=== PATIENT | female | born 1990 | race African-American/Black ===

== ENCOUNTER 2017-01-05 18:25 | Emergency (ER) | payer MEDICAID ==
[2017-01-05 19:06] LABS: #Basophils 0.1 thou/uL (0.0-0.2); #Eosinphils 0.2 thou/uL (0.0-0.7); #Lymphocytes 2.3 thou/uL (1.20-3.40); #Monocytes 0.6 thou/uL (0.11-0.59); #Neutrophils 5.5 thou/uL (1.40-6.50); %Basophils 0.6 % (0.0-1.0); %Eosinophils 2.4 % (0.0-10.0); %Lymphocytes 26.6 % (21.0-51.0); %Monocytes 6.8 % (0.0-10.0); %Neutrophils 63.6 % (42.0-75.0); Hemoglobin 10.6 g/dL (12.0-16.0); Mean Corpuscular Hemoglobin 26.2 pg (27.0-31.0); Mean Corpuscular Volume 81.9 fl (81.0-99.0); Mean Platelet Volume 7.8 fL (7.4-10.4); Platelet Count 348 thou/uL (130-400); RBC Distribution Width 13.4 % (11.5-14.5); Red Blood Cell (RBC) Count 4.05 mill/uL (4.20-5.40); White Blood Cell (WBC) Count 8.7 thou/uL (4.8-10.8)
[2017-01-05 19:24] LABS: ALT (SGPT) 16 U/L (0-55); AST (SGOT) 13 U/L (5-34); Albumin 3.9 g/dL (3.5-5.0); Alkaline Phosphatase 71 U/L (40-150); Anion Gap 14 mmol/L (10-20); BUN (Urea Nitrogen) 10 mg/dL (7.0-18.7); Bilirubin, Total Less than 0.3 mg/dL (0.2-1.2); Calc. Creatinine Clearance 0 mL/min (70-130); Calcium 9.1 mg/dL (7.8-10.44); Carbon Dioxide 21 mmol/L (22-29); Chloride 110 mmol/L (98-107); Estimated GFR-MDRD Greater than 90; Globulin 2.8 g/dL (2.4-3.5); Glucose 108 mg/dL (70-105); Potassium 3.7 mmol/L (3.5-5.1); Protein, Total 6.7 g/dL (6.0-8.3); Sodium 141 mmol/L (136-145)
[2017-01-05 19:33] LABS: Bilirubin Negative (Negative); Blood, Urine Small (Negative); Clarity Clear (Clear); Glucose, Urine (Dipstick) Negative (Negative); Leukocyte Negative (Negative); Nitrite Negative (Negative); Protein, Urine (Dipstick) Negative (Neg-Trace)
[2017-01-05 19:35] LABS: Bacteria/HPF Rare-Few HPF (None Seen); Other Microscopic Description C&S SET UP; WBC/HPF 0-3 HPF (0-3)
--- NOTE | 2017-01-05 19:38 | RAD ---
TWO VIEWS CHEST: History: 26-year-old with history of dyspnea. FINDINGS: PA and lateral views of the chest demonstrate the lungs to be well aerated. No evidence of acute int rathoracic abnormality is seen. No evidence of effusions, pneumonia, or pneumothorax seen. IMPRESSION: Unremarkable two views chest. POS: [facility]
== END 2017-01-05 21:21 | disposition home or self-care (01) ==
LOC: MADERS 18:25
DX: R53.83 Other fatigue (principal); D64.9 Anemia, unspecified
CPT/HCPCS: 36415; 71020; 80053; 81003; 81015; 85025; 87077; 87086

== ENCOUNTER 2017-05-31 22:16 | Emergency (ER) | payer MEDICAID ==
[2017-05-31] MEDS ORDERED: AMOXicillin 250 MG CAP ONE (23:17)
[2017-05-31] MEDS ORDERED: Ondansetron ODT 4 MG TAB ONE ×2 (23:17→23:20)
== END 2017-05-31 23:33 | disposition home or self-care (01) ==
LOC: MADERS 22:16
DX: J02.9 Acute pharyngitis, unspecified (principal)
CPT/HCPCS: 99283; Q0162

== ENCOUNTER 2017-07-13 10:13 | Emergency (ER) | payer MEDICAID ==
[2017-07-13] MEDS ORDERED: Meclizine HCl 25 MG TAB ONE (11:02)
[2017-07-13] MEDS ORDERED: Ondansetron ODT 4 MG TAB ONE (11:02)
[2017-07-13 12:04] LABS: Bacteria/HPF Rare-Few HPF (None Seen); Bilirubin Negative (Negative); Blood, Urine Trace (Negative); Clarity Clear (Clear); Glucose, Urine (Dipstick) Negative (Negative); Leukocyte Negative (Negative); Nitrite Negative (Negative); Other Microscopic Description C&S SET UP; Protein, Urine (Dipstick) Negative (Neg-Trace); Specific Gravity, Urine 1.025 (1.005-1.030); Squamous Epithelial 0-3 HPF (0-3); Urobilinogen 0.2 mg/dL (0.2-1.0); WBC/HPF 0-3 HPF (0-3); pH, Urine 6.5 (5.0-9.0)
== END 2017-07-13 12:20 | disposition home or self-care (01) ==
LOC: MADERS 10:13
DX: B34.9 Viral infection, unspecified (principal); D64.9 Anemia, unspecified
CPT/HCPCS: 81001; 87077; 87086; 99284; Q0162

== ENCOUNTER 2017-11-20 21:06 | Emergency (ER) | payer MEDICAID, SELFPAY ==
[2017-11-20] MEDS ORDERED: Ondansetron ODT 4 MG TAB ONE (22:42)
[2017-11-20] MEDS ORDERED: Ketorolac Tromethamine 60 MG/2 ML VIAL ONE (22:42)
[2017-11-20] MEDS ORDERED: Dexamethasone 4 mg/ml Vial ONE (23:00)
[2017-11-20] MEDS ORDERED: Dexamethasone 4 MG TAB ONE (23:01)
== END 2017-11-20 23:16 | disposition home or self-care (01) ==
LOC: MADERS 21:06
DX: G43.909 Migraine, unspecified, not intractable, without status migrainosus (principal)
CPT/HCPCS: 96372; J1100; J1885; J8540; Q0162

== ENCOUNTER 2017-12-05 17:06 | Emergency (ER) | payer SELFPAY | END 2017-12-05 18:05 | disposition home or self-care (01) | LOC: MADERS 17:06 | DX: J06.9 Acute upper respiratory infection, unspecified (principal); D64.9 Anemia, unspecified | CPT/HCPCS: 99283 ==

== ENCOUNTER 2018-03-01 21:35 | Emergency (ER) | payer SELFPAY ==
[~2018-03-01 21:35] MED LIST: Sodium Chloride 0.9% 1,000 ML BAG ONE
[2018-03-01] MEDS ORDERED: Metoclopramide HCl 10 MG/2 ML VIAL ONE (23:07)
[2018-03-01] MEDS ORDERED: Ketorolac Tromethamine 30 MG/ML VIAL ONE (23:07)
[2018-03-01] MEDS ORDERED: Promethazine HCl 25 MG/ML VIAL ONE (23:07)
[2018-03-01] MEDS ORDERED: diphenhydrAMINE 50 MG/ML VIAL ONE (23:07)
== END 2018-03-02 00:26 | disposition home or self-care (01) ==
LOC: MADERS 21:35
DX: G43.909 Migraine, unspecified, not intractable, without status migrainosus (principal)
CPT/HCPCS: 96361; 96374; 96375; J1200; J1885; J2550; J2765; J7050

== ENCOUNTER 2018-03-19 20:37 | Emergency (ER) | payer SELFPAY | END 2018-03-19 21:44 | disposition home or self-care (01) | LOC: MADERS 20:37 | DX: J02.9 Acute pharyngitis, unspecified (principal); D64.9 Anemia, unspecified; G43.909 Migraine, unspecified, not intractable, without status migrainosus | CPT/HCPCS: 87081; 87430; 99283 ==

== ENCOUNTER 2018-07-24 19:54 | Emergency (ER) | payer SELFPAY ==
[2018-07-24 20:39] LABS: Bilirubin Negative (Negative); Blood, Urine Small (Negative); Clarity Clear (Clear); Glucose, Urine (Dipstick) Negative (Negative); Leukocyte Negative (Negative); Nitrite Negative (Negative); Protein, Urine (Dipstick) Negative (Neg-Trace); pH, Urine 8.5 (5.0-9.0)
[2018-07-24 20:45] LABS: Bacteria/HPF Rare-Few HPF (None Seen); Pregnancy Test - Urine (BHCG) POSITIVE (Negative); Pregu Control Background? CLEAR/WHITE (CLR/WHITE); Pregu Control Bar Appear? YES (CONTROL BAR); WBC/HPF 0-3 HPF (0-3)
[2018-07-24 21:25] LABS: #Basophils 0.1 thou/uL (0.0-0.2); #Eosinphils 0.2 thou/uL (0.0-0.7); #Lymphocytes 2.8 thou/uL (1.20-3.40); #Monocytes 0.8 thou/uL (0.11-0.59); #Neutrophils 5.8 thou/uL (1.40-6.50); %Basophils 0.9 % (0.0-1.0); %Eosinophils 2.2 % (0.0-10.0); %Lymphocytes 28.7 % (21.0-51.0); %Monocytes 8.5 % (0.0-10.0); %Neutrophils 59.7 % (42.0-75.0); Hemoglobin 10.6 g/dL (12.0-16.0); Mean Corpuscular HGB CONC 32.1 g/dL (32.0-36.0); Mean Corpuscular Hemoglobin 25.7 pg (27.0-31.0); Mean Platelet Volume 8.3 fL (7.4-10.4); Platelet Count 426 thou/uL (130-400); Red Blood Cell (RBC) Count 4.12 mill/uL (4.20-5.40); White Blood Cell (WBC) Count 9.6 thou/uL (4.8-10.8)
[2018-07-24 21:38] LABS: ALT (SGPT) 10 U/L (8-55); AST (SGOT) 12 U/L (5-34); Albumin 4.1 g/dL (3.5-5.0); Alkaline Phosphatase 71 U/L (40-150); Anion Gap 12 mmol/L (10-20); BUN (Urea Nitrogen) 9 mg/dL (7.0-18.7); Bilirubin, Total 0.2 mg/dL (0.2-1.2); Calc. Creatinine Clearance 0 mL/min (70-130); Calcium 9.4 mg/dL (7.8-10.44); Carbon Dioxide 22 mmol/L (22-29); Chloride 109 mmol/L (98-107); Estimated GFR-MDRD Greater than 90; Glucose 94 mg/dL (70-105); Potassium 3.8 mmol/L (3.5-5.1); Protein, Total 7.1 g/dL (6.0-8.3); Sodium 139 mmol/L (136-145)
== END 2018-07-24 22:14 | disposition home or self-care (01) ==
LOC: MADERS 19:54
DX: O99.89 Other specified diseases and conditions complicating pregnancy, childbirth and the puerperium (principal); M54.42 Lumbago with sciatica, left side; O99.011 Anemia complicating pregnancy, first trimester
CPT/HCPCS: 36415; 80053; 81003; 81015; 81025; 84702; 85025; 99283

== ENCOUNTER 2018-09-18 12:38 | Emergency (ER) | payer MEDICAID, OTHER ==
[2018-09-18 13:24] LABS: Bilirubin Negative (Negative); Blood, Urine Small (Negative); Glucose, Urine (Dipstick) Negative (Negative); Leukocyte Negative (Negative); Nitrite Negative (Negative); Protein, Urine (Dipstick) Negative (Neg-Trace); Urobilinogen 0.2 mg/dL (0.2-1.0)
[2018-09-18 13:40] LABS: Clarity Hazy (Clear)
[2018-09-18 13:41] LABS: Bacteria/HPF Rare-Few HPF (None Seen); Specific Gravity, Urine 1.032 (1.002-1.036); WBC/HPF 0-3 HPF (0-3)
[2018-09-18 13:42] LABS: #Basophils 0.1 thou/uL (0.0-0.2); #Eosinphils 0.1 thou/uL (0.0-0.7); #Lymphocytes 1.7 thou/uL (1.20-3.40); #Monocytes 0.7 thou/uL (0.11-0.59); #Neutrophils 6.5 thou/uL (1.40-6.50); %Basophils 0.8 % (0.0-1.0); %Eosinophils 1.4 % (0.0-10.0); %Lymphocytes 18.1 % (21.0-51.0); %Monocytes 8.1 % (0.0-10.0); %Neutrophils 71.6 % (42.0-75.0); Hemoglobin 11.1 g/dL (12.0-16.0); Mean Corpuscular HGB CONC 32.7 g/dL (32.0-36.0); Mean Corpuscular Hemoglobin 26.5 pg (27.0-31.0); Mean Platelet Volume 7.3 fL (7.4-10.4); Platelet Count 372 thou/uL (130-400); RBC Distribution Width 13.1 % (11.5-14.5); Red Blood Cell (RBC) Count 4.18 mill/uL (4.20-5.40); White Blood Cell (WBC) Count 9.1 thou/uL (4.8-10.8)
[2018-09-18 13:57] LABS: ALT (SGPT) 22 U/L (8-55); AST (SGOT) 19 U/L (5-34); Albumin 3.9 g/dL (3.5-5.0); Alkaline Phosphatase 64 U/L (40-150); Anion Gap 15 mmol/L (10-20); BUN (Urea Nitrogen) 9 mg/dL (7.0-18.7); Bilirubin, Total 0.4 mg/dL (0.2-1.2); Calc. Creatinine Clearance 0 mL/min (70-130); Calcium 9.5 mg/dL (7.8-10.44); Carbon Dioxide 21 mmol/L (22-29); Chloride 105 mmol/L (98-107); Estimated GFR-MDRD Greater than 90; Globulin 3.2 g/dL (2.4-3.5); Glucose 85 mg/dL (70-105); Potassium 3.8 mmol/L (3.5-5.1); Protein, Total 7.1 g/dL (6.0-8.3); Sodium 137 mmol/L (136-145)
[2018-09-21 22:49] LABS: Chlamydia by PCR Not Detected (NotDetected); GC by PCR Not Detected (NotDetected)
== END 2018-09-18 15:05 | disposition short-term general hospital (02) ==
LOC: MADERS 12:38
DX: O99.89 Other specified diseases and conditions complicating pregnancy, childbirth and the puerperium (principal); R10.2 Pelvic and perineal pain; O99.011 Anemia complicating pregnancy, first trimester; Z3A.10 10 weeks gestation of pregnancy
CPT/HCPCS: 36415; 80053; 81001; 84702; 85025; 87491; 87591; 99284

== ENCOUNTER 2019-01-11 09:53 | Outpatient (CLI) | payer OTHER ==
[2019-01-11 11:26] LABS: #Basophils 0.1 thou/uL (0.0-0.2); #Eosinphils 0.1 thou/uL (0.0-0.7); #Lymphocytes 1.5 thou/uL (1.20-3.40); #Monocytes 0.6 thou/uL (0.11-0.59); %Basophils 0.9 % (0.0-1.0); %Eosinophils 1.3 % (0.0-10.0); %Lymphocytes 17.6 % (21.0-51.0); %Neutrophils 73.1 % (42.0-75.0); Hemoglobin 10.6 g/dL (12.0-16.0); Mean Corpuscular HGB CONC 32.2 g/dL (32.0-36.0); Mean Corpuscular Hemoglobin 26.3 pg (27.0-31.0); Mean Corpuscular Volume 81.5 fL (78.0-98.0); Mean Platelet Volume 7.7 fL (7.4-10.4); Platelet Count 299 thou/uL (130-400); RBC Distribution Width 14.4 % (11.5-14.5); Red Blood Cell (RBC) Count 4.02 mill/uL (4.20-5.40); White Blood Cell (WBC) Count 8.2 thou/uL (4.8-10.8)
[2019-01-11 17:26] LABS: Syphilis Antibody Nonreactive (Nonreactive); Syphilis Antibody Index 0.07 S/CO (<1.00 Non-Reactive)
[2019-01-11 17:29] LABS: HIV (1/2) Antibody/Antigen Non-Reactive (NonReactive); HIV 1/2 INDEX 0.06 S/CO (<1.00)
== END 2019-01-11 09:54 | disposition home or self-care (01) ==
LOC: MADLABBHPM 09:53
PROVIDERS: ATTEND Family Medicine
DX: O09.893 Supervision of other high risk pregnancies, third trimester (principal)
CPT/HCPCS: 36415; 82950; 85025; 86780; 87389

== ENCOUNTER 2019-01-25 07:45 | Outpatient (CLI) | payer OTHER | END 2019-01-25 07:46 | disposition home or self-care (01) | LOC: MADLABBHPM 07:45 | PROVIDERS: ATTEND Family Medicine | DX: O09.893 Supervision of other high risk pregnancies, third trimester (principal) | CPT/HCPCS: 36415; 82951; 82952 ==

== ENCOUNTER 2019-07-04 20:59 | Emergency (ER) | payer OTHER, SELFPAY ==
--- NOTE | 2019-07-04 22:34 | CT ---
CT BRAIN NONCONTRAST: DATE: 07/04/2019 HISTORY: 28-year-old female with headache FINDINGS: There is no evidence of acute intra-axial or extra-axial hemorrhage. There is no midline shift or any other mass effect. There is no extra-axial fluid collection. There is no evidence of obstructive hydrocephalus. Calvarium is intact. IMPRESSION: No acute intracranial findings.
== END 2019-07-04 21:56 | disposition home or self-care (01) ==
LOC: MADERS 20:59
DX: R51 Headache (principal); D64.9 Anemia, unspecified
CPT/HCPCS: 70450

== ENCOUNTER 2019-11-02 19:36 | Emergency (ER) | payer SELFPAY | END 2019-11-02 20:44 | disposition home or self-care (01) | LOC: MADERS 19:36 | DX: J06.9 Acute upper respiratory infection, unspecified (principal); D64.9 Anemia, unspecified; G43.909 Migraine, unspecified, not intractable, without status migrainosus | CPT/HCPCS: 99283 ==

== ENCOUNTER 2020-06-04 08:20 | Outpatient (CLI) | payer OTHER ==
[2020-06-04 10:03] LABS: #Basophils 0.1 thou/uL (0.0-0.2); #Eosinphils 0.1 thou/uL (0.0-0.7); #Lymphocytes 1.9 thou/uL (1.20-3.40); #Monocytes 0.5 thou/uL (0.11-0.59); %Basophils 0.7 % (0.0-1.0); %Eosinophils 1.3 % (0.0-10.0); %Lymphocytes 24.9 % (21.0-51.0); %Monocytes 6.1 % (0.0-10.0); Hemoglobin 10.1 g/dL (12.0-16.0); Mean Corpuscular HGB CONC 31.2 g/dL (32.0-36.0); Mean Corpuscular Hemoglobin 25.7 pg (27.0-31.0); Mean Corpuscular Volume 82.4 fL (78.0-98.0); Mean Platelet Volume 8.3 fL (7.4-10.4); Platelet Count 324 thou/uL (130-400); RBC Distribution Width 13.8 % (11.5-14.5); Red Blood Cell (RBC) Count 3.92 mill/uL (4.20-5.40); White Blood Cell (WBC) Count 7.4 thou/uL (4.8-10.8)
[2020-06-04 17:22] LABS: Syphilis Antibody Nonreactive (Nonreactive); Syphilis Antibody Index 0.09 S/CO (<1.00 Non-Reactive)
[2020-06-04 17:26] LABS: HIV (1/2) Antibody/Antigen Non-Reactive (NonReactive); HIV 1/2 INDEX 0.15 S/CO (<1.00)
== END 2020-06-04 08:21 | disposition home or self-care (01) ==
LOC: MADLABBHPM 08:20
PROVIDERS: ATTEND Family Medicine
DX: O09.893 Supervision of other high risk pregnancies, third trimester (principal)
CPT/HCPCS: 36415; 82950; 85025; 86780; 87389

== ENCOUNTER 2022-02-14 14:49 | Emergency (ER) | payer OTHER | END 2022-02-14 17:16 | disposition home or self-care (01) | LOC: MADERS 14:49 | DX: T19.2XXA Foreign body in vulva and vagina, initial encounter (principal); D64.9 Anemia, unspecified | CPT/HCPCS: 99283 ==

== ENCOUNTER 2022-03-05 10:35 | Emergency (ER) | payer OTHER ==
[2022-03-05] MEDS ORDERED: Dexamethasone 10 MG/ML VIAL ONE (11:01)
[2022-03-05] MEDS ORDERED: AMOXicillin 250 MG CAP ONE (11:34)
== END 2022-03-05 11:37 | disposition home or self-care (01) ==
LOC: MADERS 10:35
DX: J02.0 Streptococcal pharyngitis (principal); D64.9 Anemia, unspecified
CPT/HCPCS: 87430; 99283; J1100

== ENCOUNTER 2022-09-03 08:20 | Emergency (ER) | payer OTHER ==
[2022-09-03] MEDS ORDERED: Ibuprofen 800 MG TAB ONE (08:44)
== END 2022-09-03 09:28 | disposition home or self-care (01) ==
LOC: MADERS 08:20
DX: S83.92XA Sprain of unspecified site of left knee, initial encounter (principal); V43.52XA Car driver injured in collision with other type car in traffic accident, initial encounter

== ENCOUNTER 2025-09-08 20:13 | Emergency (ER) | payer SELFPAY | END 2025-09-08 21:01 | disposition home or self-care (01) | LOC: MADERS 20:13 | DX: K64.4 Residual hemorrhoidal skin tags (principal) | CPT/HCPCS: 99283 ==